=== PATIENT | female | born 1955 | race Caucasian/White ===

== ENCOUNTER 2020-02-15 08:30 | Emergency (ER) | payer BC ==
[~2020-02-15] VITALS: Ht 154.9 cm; Wt 67.6 kg
[2020-02-15 08:46] VITALS: Ht 154.9 cm; Wt 67.6 kg
[2020-02-15 10:08] VITALS: BP 142/84
== END 2020-02-15 10:08 | disposition home or self-care (01) ==
LOC: ED 08:30
DX: S00.03XA Contusion of scalp, initial encounter (principal); I10 Essential (primary) hypertension; E11.9 Type 2 diabetes mellitus without complications; W18.30XA Fall on same level, unspecified, initial encounter; Y93.89 Activity, other specified; Y92.89 Other specified places as the place of occurrence of the external cause; Y99.8 Other external cause status
CPT/HCPCS: Q0162